=== PATIENT | female | born 1950 | race Caucasian/White ===

== ENCOUNTER 2017-10-03 17:34 | Emergency (ER) | payer MEDICARE, OTHER ==
[2017-10-03] MEDS ORDERED: HYDROcodone 7.5MG/APAP 325MG 1 EA TAB PO ONE (17:46)
--- NOTE | 2017-10-03 17:49 | ED.PDOC ---
History of Present Illness - General Chief Complaint: Skin/Abrasion/Tear Stated Complaint: L leg rash and discomfort Time Seen by Provider: 10/03/17 17:37 Source: patient Exam Limitations: no limitations - History of Present Illness Timing/Duration: 24 hours Severity: severe Improving Factors: nothing Worsening Factors: other - walking Associated Symptoms: denies symptoms Allergies/Adverse Reactions: Allergies Codeine Allergy (Verified 10/03/17 17:44) Vomitting Home Medications: Ambulatory Orders Atorvastatin Calcium [Lipitor] 20 mg PO DAILY 10/03/17 Cholecalciferol [Vitamin D3] 1,000 unit PO DAILY 10/03/17 Citalopram Hydrobromide [Citalopram Hydrobromide] 40 mg PO DAILY 10/03/17 Esomeprazole Magnesium [Nexium] 40 mg PO DAILY 10/03/17 Ferrous Sulfate 325 mg PO DAILY 10/03/17 Gabapentin [Neurontin] 300 mg PO TID 10/03/17 Hydrochlorothiazide [Hydrochlorothiazide] 12.5 mg PO DAILY 10/03/17 Levothyroxine Sodium [Levothyroxine Sodium] 50 mcg PO MOTUWETHFRSA 10/03/17 Levothyroxine Sodium [Levothyroxine Sodium] 100 mcg PO ZHANG 10/03/17 Nystatin (Topical) [Nystop] dose TD BID 10/03/17 Tramadol HCl 50 mg PO Q6HR PRN #15 tab 10/03/17 Tramadol HCl [Tramadol HCl] 50 mg PO Q6H PRN 10/03/17 Warfarin Sodium [Warfarin Sodium] 3 mg PO SUMOTUWEFRSA 10/03/17 Warfarin Sodium [Warfarin Sodium] 4.5 mg PO TH 10/03/17 busPIRone HCL [Buspar] 5 mg PO TID 10/03/17 tiZANidine [Zanaflex] 4 mg PO Q8H PRN 10/03/17 Review of Systems - Review of Systems Constitutional: Denies: chills, fever EENTM: States: no symptoms reported Respiratory: States: no symptoms reported. Denies: cough, short of breath Cardiology: Denies: chest pain Gastrointestinal/Abdominal: States: no symptoms reported Musculoskeletal: States: joint pain, joint swelling, muscle pain Skin: States: dryness Neurological: States: no symptoms reported Endocrine: States: no symptoms reported Family Medical History - Family History Mother Family History: Unknown Living Status: Physical Exam - Physical Exam General Appearance: Agitated, Obvious distress Eye Exam: bilateral normal Ears, Nose, Throat: hearing grossly normal, normal pharynx Respiratory: no respiratory distress Cardiovascular/Chest: normal peripheral pulses Extremity: swelling - and effusion of L knee with decreased ROM without erythema or increased heat, no calf tenderness, negative Yobany's Neurologic: no motor/sensory deficits, alert Skin Exam: rash - drying, healing rash to posterior distal L thigh to popliteal fossa, nontender Departure - Departure Clinical Impression: Knee effusion, left Disposition: Discharge to Home or Self Care Departure Forms: ED Discharge - Pt. Copy, Patient Portal Self Enrollment Instructions: DI for Abrasion Prescriptions: Tramadol HCl 50 mg PO Q6HR PRN #15 tab PRN Reason: Moderate To Severe Pain Home Medications: Ambulatory Orders Atorvastatin Calcium [Lipitor] 20 mg PO DAILY 10/03/17 Cholecalciferol [Vitamin D3] 1,000 unit PO DAILY 10/03/17 Citalopram Hydrobromide [Citalopram Hydrobromide] 40 mg PO DAILY 10/03/17 Esomeprazole Magnesium [Nexium] 40 mg PO DAILY 10/03/17 Ferrous Sulfate 325 mg PO DAILY 10/03/17 Gabapentin [Neurontin] 300 mg PO TID 10/03/17 Hydrochlorothiazide [Hydrochlorothiazide] 12.5 mg PO DAILY 10/03/17 Levothyroxine Sodium [Levothyroxine Sodium] 50 mcg PO MOTUWETHFRSA 10/03/17 Levothyroxine Sodium [Levothyroxine Sodium] 100 mcg PO ZHANG 10/03/17 Nystatin (Topical) [Nystop] dose TD BID 10/03/17 Tramadol HCl 50 mg PO Q6HR PRN #15 tab 10/03/17 Tramadol HCl [Tramadol HCl] 50 mg PO Q6H PRN 10/03/17 Warfarin Sodium [Warfarin Sodium] 3 mg PO SUMOTUWEFRSA 10/03/17 Warfarin Sodium [Warfarin Sodium] 4.5 mg PO TH 10/03/17 busPIRone HCL [Buspar] 5 mg PO TID 10/03/17 tiZANidine [Zanaflex] 4 mg PO Q8H PRN 10/03/17
[2017-10-03 17:56] VITALS: TEMP 99.4
--- NOTE | 2017-10-03 19:11 | RAD ---
EXAM DESCRIPTION: Knee,Left 2 or More Views CLINICAL HISTORY: 67 years Female, pain in knee COMPARISON: None. FINDINGS: Mild degenerative joint space narrowing is demonstrated with marginal osteophyte formation. No obvious acute fracture. No subluxation. Chronic appearing ossicle along the superior margin of the patella noted. Moderate-sized knee joint effusion is present. IMPRESSION: 1. Knee joint effusion. 2. No obvious acute fracture. 3. Degenerative changes. Electronically signed by: Pablo Ceja MD 10/03/2017 7:09 PM CDT
[2017-10-03 19:50] VITALS: BP 136/90; O2SAT 98
== END 2017-10-03 19:52 | disposition home or self-care (01) ==
LOC: ER 17:34
DX: M25.462 Effusion, left knee (principal); Z79.01 Long term (current) use of anticoagulants